=== PATIENT | female | born 1985 | race Caucasian/White ===

== ENCOUNTER 2019-01-14 13:36 | Outpatient (CLI) | payer OTHER ==
[~2019-01-14] VITALS: Ht 172.7 cm; Wt 69.7 kg
[2019-01-14 13:53] VITALS: BP 112/58
[2019-01-14] MEDS ORDERED: MAPA500T2 PO (13:54)
[2019-01-14] MEDS ORDERED: PRENTAB9 PO (13:54)
--- NOTE | 2019-01-14 16:39 | IPNPDOC ---
Text Note Date of Service The patient was seen on 01/14/19. NOTE Subjective: Patient is a 33-year-old female who is a at 21 weeks gestation with an REENA of 05/27/19 based off of a first trimester ultrasound. She received care in [facility] in her first trimester. Her has been uncomplicated. She presents to L&D with complaints of decreased movement. She reports she hasn't felt movement in 4 days. After being in the department she reports feeling multiple movements. She denies any cramping, contractions, vaginal bleeding or leaking of fluid. Past pregnancies: 01/14/14: of living female weighting 6 lbs 5 oz at 40 weeks gestation Past medical History: no Past surgical history: appendectomy Family History: non-contributory Social History: Single and not with FOB. Living with sister currently with her 5 year old daughter. She reports that she quit smoking in 2019. She denies drug abuse or use. She does have a history of STDs in the past (chlamydia and gonorrhea) Objective: FHR is 144. A+O x3. Respiratory: regular rate and rhythm. Abdomen: Gravid with uterus measuring 2 finger breaths above uterus. Abdomen is soft and nontender to palpation. Extremities: no edema and no clonus. Assessment: IUP at 21 weeks gestation, decreased movement Plan:Patient discharged to home. She is to be set up for her first appointment with [facility]. They have her records and she is awaiting for them to be reviewed for an appointment to be made. Script given for anatomy ultrasound. Reviewed complications to call office with and or come into labor and delivery with. Patient verbalized understanding. VS,Fishbone, I+O VS, Fishbone, I+O Vital Signs Date Time Temp Pulse Resp B/P (MAP) Pulse Ox O2 Delivery O2 Flow Rate FiO2 01/14/19 13:53 98.4 76 18 112/58 (76) LOPEZ RAMIREZ CNM Jan 14, 2019 16:39
== END 2019-01-14 16:30 | disposition home or self-care (01) ==
LOC: M LDO 13:36
PROVIDERS: ATTEND Advanced Practice Midwife
DX: O36.8120 Decreased fetal movements, second trimester, not applicable or unspecified (principal); Z3A.21 21 weeks gestation of pregnancy

== ENCOUNTER → 2019-01-22 | Outpatient (CLI) | payer MEDICAID ==
[~2019-01-22] MED LIST: MAPA500T2 PO; PRENTAB9 PO
--- NOTE | 2019-01-22 14:58 | REP ---
Clinical: Anatomical evaluation. Comparison: None . Findings: Examination demonstrates a single live intrauterine in cephalic presentation. motion is identified by technologist. Placenta is noted posterior and grade I without evidence for placenta previa or abruption. Amniotic fluid volume is normal. Cervix measures 4.1 cm in length and appears closed. Nuchal cord cannot be excluded. Gestational age by LMP 22 weeks 1 day with REENA 05/27/2019 . Gestational age by current measurements 21 weeks 3 days with REENA 06/01/2019 . FHR equals 144 beats per minute. BPD 5.1 cm 21 weeks 2 days HC 18.8 cm 21 weeks 1 day AC 16.6 cm 21 weeks 4 days FL 3.7 cm 21 weeks 5 days HL 3.4 cm 21 weeks 3 days HC/AC ratio 1.14 Estimated weight 437 grams ( 31st percentile). Anatomical assessment demonstrates normal structures including cranium, cavum, cerebellum/posterior fossa, facial features, lungs, diaphragm, stomach, cord insertion/three-vessel cord, kidneys/bladder, spine, and extremities. Impression: 1. Single live intrauterine in cephalic presentation demonstrating appropriate interval growth. 2. Nuchal cord cannot be excluded. 3. Limited evaluation of the cord plexus and four-chamber heart. Remainder of the anatomical assessment is complete and normal. Electronically Signed by Holland Cohen MD 01/22/2019 02:49 P
== END ==
LOC: M RAD 13:53
PROVIDERS: ATTEND Advanced Practice Midwife
DX: Z34.82 Encounter for supervision of other normal pregnancy, second trimester (principal); Z3A.22 22 weeks gestation of pregnancy

== ENCOUNTER → 2020-10-22 | Outpatient (CLI) | payer OTHER, MEDICAID ==
[2020-10-22 15:29] LABS: BASO % 0.5 % (0.0-1.0); EOS % 0.1 % (0.0-3.0); HEMATOCRIT 45.2 % (36.0-47.0); LYMPH # 2.2 10^3/uL (1.5-5.0); LYMPH % 26.1 % (24.0-44.0); MEAN CORPUSCULAR HEMOGLOBIN 32.3 pg (27.0-33.0); MEAN CORPUSCULAR HGB CONC 33.2 g/dl (32.0-36.5); MEAN CORPUSCULAR VOLUME 97.4 fl (80.0-96.0); MONO # 0.6 10^3/uL (0.0-0.8); MONO % 6.9 % (2.0-8.0); NEUTROPHILS # 5.5 10^3/uL (1.5-8.5); PLATELET COUNT, AUTOMATED 297 10^3/uL (150-450); RED BLOOD COUNT 4.64 10^6/uL (4.00-5.40); WHITE BLOOD COUNT 8.3 10^3/uL (4.0-10.0)
[2020-10-22 15:33] LABS: AMORPHOUS SEDIMENT SMALL (NEGATIVE); APPEARANCE, URINE CLOUDY (CLEAR); BACTERIA, URINE AUTO NEGATIVE (NEGATIVE); BILIRUBIN, URINE AUTO NEGATIVE (NEGATIVE); BLOOD, URINE BLOOD NEGATIVE (NEGATIVE); COLOR, URINE YELLOW (YELLOW); GLUCOSE, URINE (UA) AUTO NEGATIVE (NEGATIVE); KETONE, URINE AUTO NEGATIVE (NEGATIVE); LEUKOCYTE ESTERASE, URINE AUTO TRACE (NEGATIVE); MUCUS, URINE SMALL (NEGATIVE); NITRITE, URINE AUTO NEGATIVE (NEGATIVE); PROTEIN, URINE AUTO NEGATIVE (NEGATIVE); RBC, URINE AUTO 5 /HPF (0-3); SPECIFIC GRAVITY URINE AUTO 1.021 (1.002-1.035); SQUAMOUS EPITHELIAL CELL UR AU 7 /HPF (0-6); UROBILINOGEN, URINE AUTO 0.2 mg/dL (0.0-2.0); WBC, URINE AUTO 2 /HPF (0-3)
[2020-10-22 16:01] LABS: ALBUMIN 4.3 GM/DL (3.2-5.2); ALT/SGPT 17 U/L (12-78); BILIRUBIN,TOTAL 0.5 MG/DL (0.2-1.0); BLOOD UREA NITROGEN 12 MG/DL (7-18); CALCIUM LEVEL 9.5 MG/DL (8.5-10.1); CARBON DIOXIDE LEVEL 31 MEQ/L (21-32); CHLORIDE LEVEL 107 MEQ/L (98-107); CREATININE FOR GFR 0.83 MG/DL (0.55-1.30); FREE T4 1.26 NG/DL (0.76-1.46); GLOMERULAR FILTRATION RATE > 60.0 (>60); GLUCOSE, FASTING 96 MG/DL (70-100); POTASSIUM SERUM 5.4 MEQ/L (3.5-5.1); SODIUM LEVEL 139 MEQ/L (136-145); THYROID STIMULATING HORMONE 0.565 uIU/ML (0.358-3.740); TOTAL PROTEIN 7.6 GM/DL (6.4-8.2)
[2020-10-22 16:07] LABS: ERYTHROCYTE SEDIMENTATION RATE 2 mm/hr (0-20)
[2020-10-22 16:35] LABS: HIV 1&2 SCREEN CENTAUR NEGATIVE (NEGATIVE)
[2020-10-22 16:57] LABS: GC DNA AMPLIFICATION NEGATIVE (NEGATIVE)
--- NOTE | 2020-10-23 05:44 | REP ---
INDICATION: ABNORMAL WEIGHT LOSS COMPARISON: None. TECHNIQUE: PA and lateral. FINDINGS: The mediastinum and cardiac silhouette are normal. The lung bowie are clear and without acute consolidation, effusion, or pneumothorax. The skeletal structures are intact and normal. IMPRESSION: No acute cardiopulmonary process. <Electronically signed by Holland Cohen > 10/23/20 0522
== END ==
LOC: M PLAIMG 12:10
PROVIDERS: ATTEND Family Medicine
DX: R63.4 Abnormal weight loss (principal)

== ENCOUNTER 2020-10-31 13:26 | Emergency (ER) | payer MEDICAID, OTHER ==
[~2020-10-31] VITALS: Ht 172.7 cm; Wt 57.3 kg
[2020-10-31] MEDS ORDERED: BUSP-29 PO (13:35)
[2020-10-31] MEDS ORDERED: dexameTHASONE 20MG/5ML VIAL (J1100 PER 1MG) IV ONE (14:10)
[2020-10-31] MEDS ORDERED: diphenhydrAMINE 50MG/ML VIAL (J1200) IV ONE (14:10)
[2020-10-31] MEDS ORDERED: FAMOTIDINE INJ 20MG/2ML VIAL (S0028 PER 1) IVP ONE (14:10)
[2020-10-31] MEDS ORDERED: BENA25CA4 PO (15:47)
[2020-10-31 15:59] VITALS: BP 104/62
== END 2020-10-31 16:04 | disposition home or self-care (01) ==
LOC: M ED 13:26
DX: L29.8 Other pruritus (principal)
CPT/HCPCS: 96374; 99284; J1100; J1200